=== PATIENT | male | born 1975 | race Caucasian/White ===

== ENCOUNTER 2019-06-17 22:20 | Emergency (ER) | payer MEDICAID ==
[~2019-06-17] VITALS: Ht 182.9 cm; Wt 86.2 kg
[2019-06-17 22:30] VITALS: BP_SYST 164
--- NOTE | 2019-06-17 23:28 | NUR ---
Patient to ER bed 3 to gown for evaluation. Side rails up. Report given to CHAPINCITO VIDAL.
--- NOTE | 2019-06-17 23:30 | NUR ---
Patient brougth in complaining of bilateral lower extremities wounds. Patient reports that he is an IV drug user. Pain 2/10. Denies any fevers, nausea, vomiting or diarrhea. No other complaints/injuries per patient or as noted. Will continue to monitor.
--- NOTE | 2019-06-17 23:34 | NUR ---
ER Dr. Siddiqui at bedside examining patient.
[2019-06-18 00:02] VITALS: BP_SYST 164
--- NOTE | 2019-06-18 00:02 | NUR ---
Patient given written and verbal discharge instructions and verbalizes understanding. ER MD discussed with patient the results and treatment provided. Patient in stable condition. ID arm band removed. Rx of Keflex and Bactrim given. Patient educated on pain management and to follow up with PMD. Pain Scale 0/10 Opportunity for questions provided and answered. Medication side effect fact sheet provided.
== END 2019-06-18 00:02 | disposition home or self-care (01) ==
LOC: SED 22:20
DX: L03.116 Cellulitis of left lower limb (principal); E11.9 Type 2 diabetes mellitus without complications; I10 Essential (primary) hypertension
CPT/HCPCS: 99283